=== PATIENT | male | born 1980 | race Caucasian/White ===

== ENCOUNTER 2016-10-11 11:53 | Emergency (ER) | payer OTHER ==
[~2016-10-11] VITALS: Ht 170.2 cm; Wt 72.6 kg
[~2016-10-11 11:53] MED LIST: ACETAMINOPHEN325 M1 PO; CLEOCIN HCL300 MG PO; NICOTINE TRANSD21 M1 TRANSDERM; NOHOMEMEDICATIONS; ULTRAM 50MG TAB50 MG PO
[2016-10-11] MEDS ORDERED: PREDNISONE 20 M20 MG PO (13:29)
[2016-10-11] MEDS ORDERED: EPIPEN 2-P0.3 MG/0.3 IM (13:31)
== END 2016-10-11 14:20 | disposition home or self-care (01) ==
LOC: ER 11:53
DX: T78.49XA Other allergy, initial encounter (principal); N48.5 Ulcer of penis; Z20.2 Contact with and (suspected) exposure to infections with a predominantly sexual mode of transmission; Z98.890 Other specified postprocedural states; F17.210 Nicotine dependence, cigarettes, uncomplicated; F10.99 Alcohol use, unspecified with unspecified alcohol-induced disorder; X58.XXXA Exposure to other specified factors, initial encounter; Y93.89 Activity, other specified; Y92.89 Other specified places as the place of occurrence of the external cause; Y99.8 Other external cause status

== ENCOUNTER 2019-02-20 15:15 | Emergency (ER) | payer OTHER ==
[~2019-02-20] VITALS: Ht 170.2 cm; Wt 74.8 kg
[~2019-02-20 15:15] MED LIST changes: +EPIPEN 2-P0.3 MG/0.3 IM; +PREDNISONE 20 M20 MG PO
[2019-02-20 16:22] LABS: URINE BILIRUBIN NEGATIVE (Negative); URINE BLOOD NEGATIVE (Negative); URINE CLARITY CLEAR; URINE COLOR YELLOW; URINE GLUCOSE-RANDOM* NEGATIVE (Negative); URINE KETONES TRACE (Negative); URINE LEUKOCYTES-REFLEX NEGATIVE (Negative); URINE NITRITE-REFLEX NEGATIVE (Negative); URINE PROTEIN (DIPSTICK) NEGATIVE (Negative); URINE SPECIFIC GRAVITY >= 1.030 (1.005-1.035)
[2019-02-20 17:50] VITALS: BP 143/98
[2019-02-22 06:50] LABS: HSV PCR SOURCE PENIS
[2019-02-22 17:06] LABS: HSV 1 DNA Negative (Negative); HSV 2 DNA Negative (Negative)
== END 2019-02-20 17:51 | disposition home or self-care (01) ==
LOC: ER 15:15
PROVIDERS: Emergency Medicine
DX: S30.812A Abrasion of penis, initial encounter (principal); F17.210 Nicotine dependence, cigarettes, uncomplicated; I10 Essential (primary) hypertension; X58.XXXA Exposure to other specified factors, initial encounter; Y92.89 Other specified places as the place of occurrence of the external cause; Y93.89 Activity, other specified; Y99.8 Other external cause status

== ENCOUNTER 2019-02-28 12:33 | Emergency (ER) | payer OTHER ==
[~2019-02-28] VITALS: Ht 170.2 cm; Wt 74.8 kg
[2019-02-28 14:03] VITALS: BP 128/72
[2019-03-03 20:05] LABS: SYPHILIS AB Positive (Negative)
== END 2019-02-28 14:04 | disposition home or self-care (01) ==
LOC: ER 12:33
PROVIDERS: Physician Assistant
DX: N50.9 Disorder of male genital organs, unspecified (principal); I10 Essential (primary) hypertension; F17.210 Nicotine dependence, cigarettes, uncomplicated; Z86.14 Personal history of Methicillin resistant Staphylococcus aureus infection

== ENCOUNTER 2019-06-16 15:02 | Emergency (ER) | payer OTHER ==
[~2019-06-16] VITALS: Ht 170.2 cm; Wt 74.8 kg
[2019-06-16 15:03] VITALS: BP 153/98
[2019-06-16] MEDS ORDERED: PENICILLIN V P500 MG PO (15:32)
[2019-06-16] MEDS ORDERED: MOBIC15 MG PO (15:32)
== END 2019-06-16 15:34 | disposition home or self-care (01) ==
LOC: ER 15:02
DX: K04.7 Periapical abscess without sinus (principal); R51 Headache; I10 Essential (primary) hypertension; F17.210 Nicotine dependence, cigarettes, uncomplicated; Z98.890 Other specified postprocedural states

== ENCOUNTER 2021-03-23 13:50 | Emergency (ER) | payer OTHER ==
[~2021-03-23] VITALS: Ht 170.2 cm; Wt 81.7 kg
[~2021-03-23 13:50] MED LIST changes: +MOBIC15 MG PO; +PENICILLIN V P500 MG PO
[2021-03-23] MEDS ORDERED: DOXYCYCLINE 10100 MG PO (14:30)
[2021-03-23 15:45] LABS: URINE BILIRUBIN NEGATIVE (Negative); URINE BLOOD 1+ (Negative); URINE CLARITY SL CLOUDY; URINE COLOR YELLOW; URINE GLUCOSE-RANDOM* NEGATIVE (Negative); URINE KETONES NEGATIVE (Negative); URINE NITRITE-REFLEX NEGATIVE (Negative); URINE PROTEIN (DIPSTICK) NEGATIVE (Negative); URINE SPECIFIC GRAVITY >= 1.030 (1.005-1.035)
[2021-03-23 15:48] LABS: URINE LEUKOCYTES-REFLEX 2+ (Negative)
[2021-03-23 16:02] LABS: CASTS None Seen /LPF (None Seen); SQUAMOUS None Seen /LPF (0-3); URINE RBC 1-2 Rare /HPF (NONE SEEN); URINE WBC-REFLEX >25 Many /HPF (0-5)
[2021-03-23 16:03] LABS: BACTERIA-REFLEX 1-9 Few /HPF (None Seen); CRYSTALS None Seen /LPF (None Seen)
[2021-03-23] MEDS ORDERED: CEPHALEXIN500 MG PO (16:09)
[2021-03-23 16:11] VITALS: BP 138/91
== END 2021-03-23 16:12 | disposition home or self-care (01) ==
LOC: ER 13:50
PROVIDERS: Nurse Practitioner
DX: R36.9 Urethral discharge, unspecified (principal); Z11.3 Encounter for screening for infections with a predominantly sexual mode of transmission; F12.90 Cannabis use, unspecified, uncomplicated; F15.90 Other stimulant use, unspecified, uncomplicated; F17.210 Nicotine dependence, cigarettes, uncomplicated; I10 Essential (primary) hypertension; Z20.2 Contact with and (suspected) exposure to infections with a predominantly sexual mode of transmission; Z98.890 Other specified postprocedural states; Z79.899 Other long term (current) drug therapy